=== PATIENT | female | born 1965 | race Caucasian/White ===

== ENCOUNTER 2022-07-24 14:59 | Emergency (ER) | payer BC ==
[~2022-07-24] VITALS: Ht 152.4 cm; Wt 70.0 kg
--- NOTE | 2022-07-24 15:10 | ED General ---
General Stated Complaint: RT SIDE NUMBNESS History of Present Illness Date Seen by Provider: Jul 24, 2022 Time Seen by Provider: 15:09 Initial Comments 56-year-old female presents with what she feels is tingling that starts at the bottom of her right foot and comes up to her ear. She reports its been going on and off since yesterday gets worse when she walks. She reports that she has had some similar paresthesias in upper side of her body on and off for last 3 to 4 weeks. Patient does not have any focal neurologic deficits or weakness. She has no numbness weakness tingling. She is supposed be on metformin but has not been taking it. She denies any injury, headaches, fevers chills or recent illnesses. Allergies and Home Medications Allergies Coded Allergies: No Known Drug Allergies (Unverified , 07/24/22) Patient Home Medication List Home Medication List Reviewed: Yes Review of Systems Review of Systems Constitutional: see HPI EENTM: no symptoms reported Respiratory: no symptoms reported Cardiovascular: no symptoms reported Gastrointestinal: no symptoms reported Genitourinary: no symptoms reported Musculoskeletal: no symptoms reported Skin: no symptoms reported Psychiatric/Neurological: See HPI, Tingling Physical Exam Vital Signs Vital Signs - First Documented 07/24/22 15:02 Temp 36.5 Pulse 120 Resp 18 B/P (MAP) 194/71 (112) O2 Delivery Room Air Capillary Refill : Height, Weight, BMI Height: '" Weight: lbs. oz. kg; BMI Method: General Appearance: No Apparent Distress, WD/WN Eyes: Bilateral Eye Normal Inspection, Bilateral Eye PERRL, Bilateral Eye EOMI HEENT: PERRL/EOMI, Moist Mucous Membranes Neck: Non Tender, Supple Respiratory: Lungs Clear, Normal Breath Sounds, No Accessory Muscle Use Cardiovascular: Regular Rate, Rhythm, No Edema, No Gallop Gastrointestinal: Non Tender, Soft Extremity: Normal Capillary Refill, Normal Inspection, Normal Range of Motion Neurologic/Psychiatric: Alert, Oriented x3, No Motor/Sensory Deficits, Normal Mood/Affect, gas line installer II-XII Norm as Tested; No Abnormal Gait, No EOM Palsy, No Facial Droop, No Motor Weakness, No Sensory Deficit Skin: Normal Color, Warm/Dry Progress/Results/Core Measures Suspected Sepsis SIRS Temperature: Pulse: Respiratory Rate: Laboratory Tests 07/24/22 15:06: White Blood Count 11.2H Blood Pressure / Mean: Laboratory Tests 07/24/22 15:06: Creatinine 0.87, Platelet Count 249, Total Bilirubin 0.3 Results/Orders Lab Results Laboratory Tests Test 07/24/22 15:06 07/24/22 15:09 07/24/22 15:29 Range/Units White Blood Count 11.2 H 4.3-11.0 10^3/uL Red Blood Count 5.04 3.80-5.11 10^6/uL Hemoglobin 15.3 11.5-16.0 g/dL Hematocrit 44 35-52 % Mean Corpuscular Volume 87 80-99 fL Mean Corpuscular Hemoglobin 30 25-34 pg Mean Corpuscular Hemoglobin Concent 35 32-36 g/dL Red Cell Distribution Width 12.2 10.0-14.5 % Platelet Count 249 130-400 10^3/uL Mean Platelet Volume 10.9 9.0-12.2 fL Immature Granulocyte % (Auto) 0 % Neutrophils (%) (Auto) 55 42-75 % Lymphocytes (%) (Auto) 35 12-44 % Monocytes (%) (Auto) 7 0-12 % Eosinophils (%) (Auto) 2 0-10 % Basophils (%) (Auto) 1 0-10 % Neutrophils # (Auto) 6.1 1.8-7.8 10^3/uL Lymphocytes # (Auto) 3.9 1.0-4.0 10^3/uL Monocytes # (Auto) 0.8 0.0-1.0 10^3/uL Eosinophils # (Auto) 0.3 0.0-0.3 10^3/uL Basophils # (Auto) 0.1 0.0-0.1 10^3/uL Immature Granulocyte # (Auto) 0.0 0.0-0.1 10^3/uL Sodium Level 132 L 135-145 MMOL/L Potassium Level 4.4 3.6-5.0 MMOL/L Chloride Level 96 L 98-107 MMOL/L Carbon Dioxide Level 24 21-32 MMOL/L Anion Gap 12 5-14 MMOL/L Blood Urea Nitrogen 19 H 7-18 MG/DL Creatinine 0.87 0.60-1.30 MG/DL Estimat Glomerular Filtration Rate 78 BUN/Creatinine Ratio 22 Glucose Level 548 *H 70-105 MG/DL Calcium Level 9.1 8.5-10.1 MG/DL Corrected Calcium 9.1 8.5-10.1 MG/DL Magnesium Level 1.7 1.6-2.4 MG/DL Total Bilirubin 0.3 0.1-1.0 MG/DL Aspartate Amino Transf (AST/SGOT) 11 5-34 U/L Alanine Aminotransferase (ALT/SGPT) 12 0-55 U/L Alkaline Phosphatase 131 40-136 U/L Total Protein 6.7 6.4-8.2 GM/DL Albumin 4.0 3.2-4.5 GM/DL Glucometer 459 *H 70-110 MG/DL Urine Color YELLOW Urine Clarity CLEAR Urine pH 5.5 5-9 Urine Specific [place] 1.010 L 1.016-1.022 Urine Protein NEGATIVE NEGATIVE Urine Glucose (UA) 3+ H NEGATIVE Urine Ketones NEGATIVE NEGATIVE Urine Nitrite NEGATIVE NEGATIVE Urine Bilirubin NEGATIVE NEGATIVE Urine Urobilinogen 0.2 < = 1.0 MG/DL Urine Leukocyte Esterase NEGATIVE NEGATIVE Urine RBC (Auto) NEGATIVE NEGATIVE Urine RBC NONE /HPF Urine WBC NONE /HPF Urine Squamous Epithelial Cells 5-10 /HPF Urine Crystals NONE /LPF Urine Bacteria FEW H /HPF Urine Casts NONE /LPF Urine Mucus NEGATIVE /LPF Urine Yeast FEW H /HPF Urine Culture Indicated NO My Orders Orders - CHEN,SHINE L DO Cbc With Automated Diff (07/24/22 15:10) Comprehensive Metabolic Panel (07/24/22 15:10) Magnesium (07/24/22 15:10) Ua Culture If Indicated (07/24/22 15:10) Ct Head Wo (07/24/22 15:10) Thyroid Stimulating Hormone (07/24/22 15:06) Ns Iv 1000 Ml (Sodium Chloride 0.9%) (07/24/22 16:10) Vital Signs/I&O 07/24/22 15:02 Temp 36.5 Pulse 120 Resp 18 B/P (MAP) 194/71 (112) O2 Delivery Room Air Capillary Refill : Progress Note : Progress Note Patient with high blood sugars. Patient reports at one time she had been on Trulicity and insulin along with her metformin. That she went off of it because they "lost her insurance" but now have it back. I we will start her back on metformin. I asked them to call their primary care provider first thing Tuesday morning to make an appointment for next week to get started back on insulin tony ment. At this time she does not need to be hospitalized however I did discuss with him the need to work on getting her blood sugar under control is likely the cause of her paresthesias. Patient stable and discharged home Diagnostic Imaging Diagonstic Imaging: CT Plain Films/CT/US/NM/MRI: head Comments Date of Exam:07/24/22 CT HEAD WO INDICATION: Paresthesias. Intermittent right-sided arm and leg numbness x 2 days. EXAMINATION: CT brain without contrast, 07/24/2022. FINDINGS: There is no acute hemorrhage or infarct. No mass, mass effect or midline shift. No hydrocephalus. The calvarium appears intact. The paranasal sinuses and mastoid air cells clear. IMPRESSION: No acute intracranial process. Departure Impression Primary Impression: Hyperglycemia due to diabetes mellitus Additional Impression: Paresthesia Disposition: 01 HOME, SELF-CARE Condition: Stable Departure-Patient Inst. Referrals: ESTHER BRUSH APRN (PCP) Primary Care Physician [facility] (Family) Primary Care Physician Patient Instructions: High Blood Sugar, Adult ED, Diabetes and Diet, Paresthesia (DC) Add. Discharge Instructions: Please call your primary care provider first thing Tuesday morning to arrange for an appointment time to be seen next week Scripts Metformin HCl (Metformin HCl) 1,000 Mg Tablet 1000 MG PO BID, #30 TAB Prov: SHINE CHEN DO 07/24/22 SHINE CHEN DO Jul 24, 2022 15:10
[2022-07-24 15:15] LABS: BASOPHILS # (AUTO) 0.1 10^3/uL (0.0-0.1); BASOPHILS % (AUTO) 1 % (0-10); EOSINOPHILS # (AUTO) 0.3 10^3/uL (0.0-0.3); EOSINOPHILS % (AUTO) 2 % (0-10); HEMATOCRIT 44 % (35-52); HEMOGLOBIN 15.3 g/dL (11.5-16.0); LYMPHOCYTES # (AUTO) 3.9 10^3/uL (1.0-4.0); LYMPHOCYTES % (AUTO) 35 % (12-44); MEAN CORPUSCULAR HEMOGLOBIN 30 pg (25-34); MEAN CORPUSCULAR HGB CONC 35 g/dL (32-36); MEAN CORPUSCULAR VOLUME 87 fL (80-99); MEAN PLATELET VOLUME 10.9 fL (9.0-12.2); MONOCYTES # (AUTO) 0.8 10^3/uL (0.0-1.0); MONOCYTES % (AUTO) 7 % (0-12); NEUTROPHILS # (AUTO) 6.1 10^3/uL (1.8-7.8); NEUTROPHILS % (AUTO) 55 % (42-75); PLATELET COUNT 249 10^3/uL (130-400); WHITE BLOOD COUNT 11.2 10^3/uL (4.3-11.0)
--- NOTE | 2022-07-24 15:25 | Diagnostic Imaging Report ---
INDICATION: Paresthesias. Intermittent right-sided arm and leg numbness x 2 days. EXAMINATION: CT brain without contrast, 07/24/2022. FINDINGS: There is no acute hemorrhage or infarct. No mass, mass effect or midline shift. No hydrocephalus. The calvarium appears intact. The paranasal sinuses and mastoid air cells clear. IMPRESSION: No acute intracranial process. Dictated by: Dictated on workstation # [id number]
[2022-07-24 15:34] LABS: BILIRUBIN,URINE NEGATIVE (NEGATIVE); CLARITY,URINE CLEAR; COLOR,URINE YELLOW; GLUCOSE, URINE (UA) 3+ (NEGATIVE); KETONES,URINE NEGATIVE (NEGATIVE); LEUKOCYTE ESTERASE ,URINE NEGATIVE (NEGATIVE); NITRITE,URINE NEGATIVE (NEGATIVE); PH,URINE 5.5 (5-9); PROTEIN,URINE NEGATIVE (NEGATIVE)
[2022-07-24 15:39] LABS: CREATININE SERUM 0.87 MG/DL (0.60-1.30); POTASSIUM 4.4 MMOL/L (3.6-5.0)
[2022-07-24 15:40] LABS: BILIRUBIN,TOTAL 0.3 MG/DL (0.1-1.0); CALCIUM 9.1 MG/DL (8.5-10.1); MAGNESIUM 1.7 MG/DL (1.6-2.4); TOTAL PROTEIN 6.7 GM/DL (6.4-8.2)
[2022-07-24 15:41] LABS: BACTERIA,URINE FEW /HPF; YEAST,URINE FEW /HPF
[2022-07-24] MEDS ORDERED: NS IV 1000 ML 1,000 ML IV STA (16:10)
[2022-07-24] MEDS ORDERED: METF-399 PO (16:17)
[2022-07-24 16:56] VITALS: BP 164/84
== END 2022-07-24 16:56 | disposition home or self-care (01) ==
LOC: ER FS 15:01
DX: E11.65 Type 2 diabetes mellitus with hyperglycemia (principal); R20.2 Paresthesia of skin
CPT/HCPCS: 36415; 70450; 80053; 81000; 82947; 83735; 84443; 85025

== ENCOUNTER 2022-11-29 12:08 | Emergency (ER) | payer BC ==
[~2022-11-29] VITALS: Ht 152.4 cm; Wt 71.7 kg
[~2022-11-29 12:08] MED LIST: METF-399 PO
[2022-11-29] MEDS ORDERED: TETRACAINE 0.5% OPHTH SOLN 4 ML BTL (SINGLE DOSE ONLY) OP ONE (12:45)
[2022-11-29] MEDS ORDERED: oxyCODONE/APAP 5/325MG (PERCOCET 5) TABLET PO ONE (12:45)
[2022-11-29 12:57] LABS: BASOPHILS # (AUTO) 0.1 10^3/uL (0.0-0.1); BASOPHILS % (AUTO) 1 % (0-10); EOSINOPHILS # (AUTO) 0.4 10^3/uL (0.0-0.3); EOSINOPHILS % (AUTO) 4 % (0-10); HEMATOCRIT 39 % (35-52); LYMPHOCYTES % (AUTO) 27 % (12-44); MEAN CORPUSCULAR HEMOGLOBIN 30 pg (25-34); MEAN CORPUSCULAR HGB CONC 34 g/dL (32-36); MEAN CORPUSCULAR VOLUME 91 fL (80-99); MEAN PLATELET VOLUME 9.7 fL (9.0-12.2); MONOCYTES # (AUTO) 0.5 10^3/uL (0.0-1.0); MONOCYTES % (AUTO) 5 % (0-12); NEUTROPHILS % (AUTO) 64 % (42-75); PLATELET COUNT 292 10^3/uL (130-400)
[2022-11-29 13:37] LABS: CALCIUM 8.9 MG/DL (8.5-10.1); CREATININE SERUM 0.84 MG/DL (0.60-1.30); POTASSIUM 4.5 MMOL/L (3.6-5.0)
[2022-11-29] MEDS ORDERED: NS 100 ML (IVPB) BAG IV ONE (13:45)
[2022-11-29] MEDS ORDERED: CATHETER FLUSH 10 ML SYR IV PRN (13:45)
[2022-11-29] MEDS ORDERED: HOLD METFORMIN - RECEIVED CONTRAST 20 ML VIAL IV SCH (13:45)
[2022-11-29] MEDS ORDERED: IOHEXOL 350 MG/ML 100 ML (OMNIPAQUE 350) VIAL IV ONE (13:45)
--- NOTE | 2022-11-29 14:01 | ED Headache ---
General Chief Complaint: Eye Problems Stated Complaint: LT EYE PAIN;ALTERED VISION; NAUSEA Nursing Triage Note: PT AMBULATE TO ROOM FS06 WITHOUT DIFFICULTY WITH C/O LEFT EYE PAIN, PRESSURE, BLURRED VISION, AND CONGESTION STARTING TUESDAY. PT REPORTS BEING SEEN BY URGENT CARE GIVEN ABX FOR A SINUS INFECTION. PT REPORTS TAKING IBUPROFEN FOR PAIN AT 0600 TODAY. Source: patient Exam Limitations: no limitations History of Present Illness Date Seen by Provider: Nov 29, 2022 Time Seen by Provider: 12:10 Initial Comments Patient is a 57-year-old female with left eye pain/retro-orbital pain for the past week. Patient was evaluated at [facility] 3 days ago and prescribed antibiotic for possible sinus infection. Patient states she has been taking ibuprofen for pain symptoms persist. Denies change in vision in the left eye, blurred vision, tearing, scalp or temporal tenderness. No sinus pain, tenderness, URI symptoms. No other acute symptoms or complaints Timing/Duration: 1/2 hour Severity/Quality: mild Location: other Prior Headaches/Recent Trauma: other Modifying Factors: improves with other Associated Symptoms: other Allergies and Home Medications Allergies Coded Allergies: No Known Drug Allergies (Unverified , 07/24/22) Patient Home Medication List Home Medication List Reviewed: Yes Metformin HCl (Metformin HCl) 1,000 Mg Tablet, 1,000 MG PO BID Prescribed by: SHINE CHEN on 07/24/22 1617 Review of Systems Review of Systems Constitutional: see HPI Eyes: See HPI Ears, Nose, Mouth, Throat: see HPI Past Parggxi-Vaxanb-Magkya Hx Patient Social History Tobacco Use?: Yes Smoking Status: Heavy Tobacco Smoker Smokeless Tobacco Frequency: Never a User Use of E-Cig and/or Vaping dev: No Use of E-Cig and/or Vaping Willian: Never a User Substance use?: No Alcohol Use?: No Pt feels they are or have been: No Physical Exam Vital Signs Vital Signs - First Documented 11/29/22 12:10 Temp 36.8 Pulse 62 Resp 16 B/P (MAP) 169/71 (103) O2 Delivery Room Air Capillary Refill : Less Than 3 Seconds Height, Weight, BMI Height: '" Weight: lbs. oz. kg; 30.00 BMI Method: General Appearance: no apparent distress HEENT: PERRL/EOMI, normal ENT inspection, pharynx normal, other (No eye swelling, redness, pain with range of motion, no proptosis. Intraocular pressures, OD 16) Psychiatric: alert, oriented x 3 Progress/Results/Core Measures Results/Orders Lab Results Laboratory Tests Test 11/29/22 12:45 Range/Units White Blood Count 11.0 4.3-11.0 10^3/uL Red Blood Count 4.28 3.80-5.11 10^6/uL Hemoglobin 13.0 11.5-16.0 g/dL Hematocrit 39 35-52 % Mean Corpuscular Volume 91 80-99 fL Mean Corpuscular Hemoglobin 30 25-34 pg Mean Corpuscular Hemoglobin Concent 34 32-36 g/dL Red Cell Distribution Width 12.8 10.0-14.5 % Platelet Count 292 130-400 10^3/uL Mean Platelet Volume 9.7 9.0-12.2 fL Immature Granulocyte % (Auto) 0 % Neutrophils (%) (Auto) 64 42-75 % Lymphocytes (%) (Auto) 27 12-44 % Monocytes (%) (Auto) 5 0-12 % Eosinophils (%) (Auto) 4 0-10 % Basophils (%) (Auto) 1 0-10 % Neutrophils # (Auto) 7.0 1.8-7.8 10^3/uL Lymphocytes # (Auto) 3.0 1.0-4.0 10^3/uL Monocytes # (Auto) 0.5 0.0-1.0 10^3/uL Eosinophils # (Auto) 0.4 H 0.0-0.3 10^3/uL Basophils # (Auto) 0.1 0.0-0.1 10^3/uL Immature Granulocyte # (Auto) 0.0 0.0-0.1 10^3/uL Sodium Level 139 135-145 MMOL/L Potassium Level 4.5 3.6-5.0 MMOL/L Chloride Level 106 98-107 MMOL/L Carbon Dioxide Level 25 21-32 MMOL/L Anion Gap 8 5-14 MMOL/L Blood Urea Nitrogen 19 H 7-18 MG/DL Creatinine 0.84 0.60-1.30 MG/DL Estimat Glomerular Filtration Rate 80 BUN/Creatinine Ratio 23 Glucose Level 189 H 70-105 MG/DL Calcium Level 8.9 8.5-10.1 MG/DL My Orders Orders - HAYWARD,AUDREY DO Ct Angio Head W Wo (11/29/22 12:29) Cbc With Automated Diff (11/29/22 12:32) Basic Metabolic Panel (11/29/22 12:32) Oxycodone/Apap 5/325mg Tablet (Percocet (11/29/22 12:45) Tetracaine 0.5% Ophth Leighann Sdv (Tetracai (11/29/22 12:45) Iohexol Injection (Omnipaque 350 Mg/Ml 1 (11/29/22 13:45) Received Contrast (Hold Metformin- Contr (11/29/22 13:45) Sodium Chloride Flush (Catheter Flush Sy (11/29/22 13:45) Ns (Ivpb) (Sodium Chloride 0.9% Ivpb Bag (11/29/22 13:45) Medications Given in ED Current Medications Medications Dose Ordered Sig/Osman Route Start Time Stop Time Status Last Admin Dose Admin Iohexol 100 ml ONCE ONCE IV 11/29/22 13:45 11/29/22 13:46 DC 11/29/22 13:50 80 ML Oxycodone/ Acetaminophen 1 tab ONCE ONCE PO 11/29/22 12:45 11/29/22 12:46 DC 11/29/22 12:42 1 TAB Sodium Chloride 10 ml NEEDED PRN IV 11/29/22 13:45 11/29/22 13:51 10 ML Sodium Chloride 100 ml ONCE ONCE IV 11/29/22 13:45 11/29/22 13:46 DC 11/29/22 13:51 100 ML Tetracaine HCl 1 OR 2 DROPS INTO AFFEC... ONCE ONCE OP 11/29/22 12:45 11/29/22 12:46 DC 11/29/22 12:42 0.4 ML Vital Signs/I&O 11/29/22 12:10 Temp 36.8 Pulse 62 Resp 16 B/P (MAP) 169/71 (103) O2 Delivery Room Air Blood Pressure Mean: 103 Departure Communication (Admissions) CTA head: No sinusitis or aneurysm or mass occupying lesion per radiology report. Patient with retro-orbital pain headache and nausea for several days. No change in vision but hearing noted to be present. Intraocular pressure is within the normal range. CT angio does not show mass occupying lesion or presence of aneurysm. Symptoms significantly improved while in the emergency department. Findings reviewed with patient. Recommendations are to follow-up with local hook and eye machine operator next office day. Return precautions reviewed. Patient verbalizes understanding agreement with discharge instructions prior to departure. Impression Primary Impression: Retro-orbital pain of left eye Additional Impression: Nausea and vomiting Disposition: HOME, SELF-CARE Condition: Stable Departure-Patient Inst. Decision time for Depature: 14:55 Referrals: ESTHER BRUSH APRN (PCP) Primary Care Physician [facility] (Family) Primary Care Physician Patient Instructions: Headache, Adult ED, Nausea and Vomiting, Adult ED Add. Discharge Instructions: You were evaluated in the emergency department for headache and pain behind the left eye. CT was performed and is nondiagnostic. Ocular pressure was performed and was within the normal range. Please take Excedrin Migraine OTC for pain and Compazine as needed for nausea and additional relief. Follow-up with local eye doctor in the next 1 to 2 days for reevaluation. Return to the ED if new or concerning symptoms. All discharge instructions reviewed with patient and/or family. Voiced understanding. AUDREY HAYWARD DO Nov 29, 2022 14:00
--- NOTE | 2022-11-29 14:43 | Diagnostic Imaging Report ---
PROCEDURE: CT angiography of the head with and without contrast. TECHNIQUE: Noncontrast CT of the head was obtained. Subsequently, after intravenous administration of contrast, thin section axial CT angiography of the head was performed. Source data was reformatted into multiple MIP reformats. Delayed postcontrast acquisition of the head was also acquired. Auto Exposure Controls were utilized during the CT exam to meet ALARA standards for radiation dose reduction. INDICATION: Left ocular pain The globes and orbits appear normal. There are no facial fractures. The nasal septum is deviated to the left. There is silvia bullosa of the right superior nasal turbinate. There is membrane thickening in the left sphenoid air cell. The ethmoid air cells are clear. There is minimal membrane thickening in the maxillary sinuses with a small amount of fluid retention on the left. Mastoid air cells are clear. The ventricles are normal in size, shape and position. There are no masses or hemorrhages. There are no extra-axial fluid collections. Postcontrast images of the brain do not show any abnormal areas of enhancement. There is no aneurysm, large vessel occlusion or arteriovenous malformation. IMPRESSION: Minimal sinus disease. No acute intracranial abnormality is seen. Dictated by: Dictated on workstation # [id number]
[2022-11-29] MEDS ORDERED: PROC-1 PO (14:58)
[2022-11-29 15:02] VITALS: BP 139/89
== END 2022-11-29 15:02 | disposition home or self-care (01) ==
LOC: EDUNIT# 12:08 → ER FS 12:10
DX: H57.12 Ocular pain, left eye (principal); R11.2 Nausea with vomiting, unspecified; F17.200 Nicotine dependence, unspecified, uncomplicated
CPT/HCPCS: 36415; 70496; 80048; 85025; Q9967

== ENCOUNTER → 2023-01-19 | Outpatient (CLI) | payer BC ==
[~2023-01-19] MED LIST changes: +GADOTERATE 0.5 MMOL/ML (CLARISCAN) 20 ML VIAL IV ONE; +PROC-1 PO
--- NOTE | 2023-01-19 15:00 | Diagnostic Imaging Report ---
MRI BRAIN W/WO CONTRAST Date: 01/19/2023 2:47 PM Indication: STROKE Comparison: CT OF THE HEAD ON 11/29/2022. Technique: Multiplanar multisequence MRI of the brain was performed with and without intravenous contrast using the standard protocol. Findings: No acute infarct. No acute or chronic hemorrhage. The ventricles are normal in size and configuration without hydrocephalus. Mild scattered FLAIR hyperintensities in the subcortical and periventricular deep white matter, a nonspecific finding, most commonly seen with chronic small vessel ischemic disease. No abnormal enhancement. The scalp and calvarium are normal. The pituitary and sella are normal. No Chiari malformation. The visualized upper cervical spine is normal. The visualized orbits and globes are normal. The visualized paranasal sinuses are clear. The mastoid air cells are clear. Normal flow voids within the vertebral, basilar, and internal carotid arteries indicating patency. IMPRESSION: 1. No acute infarct or hemorrhage. 2. No mass or abnormal enhancement. 3. Mild chronic small vessel ischemic disease. Dictated by: Dictated on workstation # [id number]
== END ==
LOC: RAD 13:32
PROVIDERS: ATTEND Nurse Practitioner Family
DX: I67.82 Cerebral ischemia (principal); I63.30 Cerebral infarction due to thrombosis of unspecified cerebral artery
CPT/HCPCS: 70553

== ENCOUNTER → 2023-04-07 | Outpatient (CLI) | payer BC ==
[~2023-04-07] MED LIST changes: -GADOTERATE 0.5 MMOL/ML (CLARISCAN) 20 ML VIAL IV ONE
== END ==
LOC: CARDFS 08:09
PROVIDERS: ATTEND Internal Medicine Cardiovascular Disease
DX: R07.9 Chest pain, unspecified (principal)
CPT/HCPCS: 93306

== ENCOUNTER → 2023-05-18 | Outpatient (CLI) | payer BC ==
[~2023-05-18] MED LIST changes: +CATHETER FLUSH 10 ML SYR IVP PRN
[2023-05-18 09:24] VITALS: BP 150/61
--- NOTE | 2023-05-18 14:01 | Cardiology Stress Test Report ---
Stress Test Report Date of Procedure/Referring: Date of Procedure: May 18, 2023 PCP Ирина Hurst Aprn Admitting Physician Admitting Physician: Attending Physician: Derrick Sorto MD Indications: CP Baseline Heart Rate: 67 Baseline Blood Pressure: Blood Pressure Systolic: 150 Blood Pressure Diastolic: 61 Vital Signs Date Time Temp Pulse Resp B/P (MAP) Pulse Ox O2 Delivery O2 Flow Rate FiO2 05/18/23 09:24 68 150/61 (90) 98 Baseline Vital Signs Vital Signs Date Time Temp Pulse Resp B/P (MAP) Pulse Ox O2 Delivery O2 Flow Rate FiO2 05/18/23 09:24 68 150/61 (90) 98 Baseline EKG: Baseline EKG: NSR Summary: After explaining the procedure and details to the patient, she signed the consent and was brought to the stress nuclear laboratory. Patient exercised on standard Mello protocol, EKG, heart rate and blood pressure were monitored continuously, resting and stress doses of radio tracer were injected, imaging was acquired and reviewed in the short axis, horizontal long axis and vertical long axis views Patient was able to exercise for a total of 4 minutes on Mello protocol, METs 90 Maximum heart rate 146 Maximum blood pressure 147/71 Stress EKG, Minimal nondiagnostic changes Recovery EKG, Return to baseline TID: 1.06 SSS: 20 SDS: 20 EF: 56 Conclusion: Fair exercise tolerance for 4 minutes on standard Mello protocol, 5.8 METS achieving 90% of maximal expected heart rate Appropriate heart rate and blood pressure response to exercise return to [facility] during recovery Occasional PVCs, ventricular couplets and 3 beats nonsustained ventricular tachycardia noted early in recovery Abnormal EKG changes with exercise suggestive of ischemia with horizontal [address] depression in lead II, 3, aVF. Reversible ischemia involving the mid to apical anterior wall, true apex and inferoapical segment Normal left ventricular size, ejection fraction 56% Copy Copies To 1: [facility]/ DERRICK SORTO MD May 18, 2023 14:01
== END ==
LOC: CARD 07:46
PROVIDERS: ATTEND Internal Medicine Cardiovascular Disease
DX: R07.9 Chest pain, unspecified (principal)
CPT/HCPCS: 78452; 93017; A9502

== ENCOUNTER 2023-06-01 09:47 | Day surgery (SDC) | payer BC ==
[2023-06-01] VITALS (9 sets, daily range): BP systolic 124–156; BP diastolic 60–76
[~2023-06-01] VITALS: Ht 152.4 cm; Wt 78.0 kg
[~2023-06-01 09:47] MED LIST changes: -CATHETER FLUSH 10 ML SYR IVP PRN
[2023-06-01] MEDS ORDERED: HEParin (CATH LAB) 2,000 ML IV ONE (10:11)
[2023-06-01] MEDS ORDERED: LIDOCAINE 1% INJ 20 ML VIAL ONE (10:11)
[2023-06-01] MEDS ORDERED: NS IV 1000 ML 1,000 ML ONE (10:11)
[2023-06-01] MEDS ORDERED: NS IV 1000 ML 1,000 ML IV SCH ×2 (10:15→14:00)
[2023-06-01 10:35] LABS: HEMATOCRIT 38 % (35-52); HEMOGLOBIN 12.7 g/dL (11.5-16.0); MEAN CORPUSCULAR HEMOGLOBIN 30 pg (25-34); MEAN CORPUSCULAR HGB CONC 33 g/dL (32-36); MEAN CORPUSCULAR VOLUME 91 fL (80-99); MEAN PLATELET VOLUME 10.2 fL (9.0-12.2); PLATELET COUNT 279 10^3/uL (130-400); WHITE BLOOD COUNT 7.6 10^3/uL (4.3-11.0)
[2023-06-01] MEDS ORDERED: LEVO100C4 PO (10:35)
[2023-06-01] MEDS ORDERED: ATOR40TA70 PO (10:35)
[2023-06-01] MEDS ORDERED: LOSA25TA41 PO (10:35)
[2023-06-01] MEDS ORDERED: INSU100V52 SQ (10:35)
[2023-06-01] MEDS ORDERED: METF-479 PO (10:35)
[2023-06-01] MEDS ORDERED: ASPI-999 PO (10:35)
[2023-06-01 10:47] LABS: INR 0.8 (0.8-1.4); PROTHROMBIN TIME PATIENT 11.3 SEC (12.2-14.7)
[2023-06-01 10:57] LABS: BILIRUBIN,TOTAL 0.3 MG/DL (0.1-1.0); CALCIUM 8.8 MG/DL (8.5-10.1); CREATININE SERUM 1.01 MG/DL (0.60-1.30); POTASSIUM 4.6 MMOL/L (3.6-5.0)
[2023-06-01] MEDS ORDERED: HEParin 1000 UNIT/ML (10ML VIAL) FOR BOLUS ONE (12:23)
[2023-06-01] MEDS ORDERED: NITRO DRIP 25000 MCG/D5W 250 ML IV ONE (12:23)
[2023-06-01] MEDS ORDERED: fentaNYL INJ 100 MCG/2 ML AMP ONE (12:23)
[2023-06-01] MEDS ORDERED: MIDAZOLAM 5 MG/5 ML (VERSED) VIAL ONE (12:23)
[2023-06-01] MEDS ORDERED: VERAPAMIL 5 MG/2 ML (CALAN) VIAL IV ONE (12:23)
--- NOTE | 2023-06-01 13:49 | Cardiac Cath Report ---
CARDIAC CATHETERIZATION DATE OF PROCEDURE: 06-01-23 INDICATION: Abnormal stress test HISTORY: The patient is a 57 year old female with DM II who has had intermittent chest discomfort and MPI by Dr Sorto on 05-18-23 showed considerable apical and anterior ischemia. Cath was recommended PROCEDURES PERFORMED: 1. Cor angio 2. LHC PROCEDURE DESCRIPTION: After informed consent and in the fasting state, left heart catheterization was performed through the R radial artery utilizing a 6 Uzbek system by percutaneous approach. 6F TIG for RCA angio. 5F Multipurpose for LCA angio. 5F pigtail for LHC and LV angio All catheters were exchanged over a guidewire. LV Angiography: - [place] projection. LVEF 55%. No wall motion abnormalities in the [place] projection HEMODYNAMICS: LVEDP 24 mmHg. No significant pressure gradient on pull back across the aortic valve CORONARY ANGIOGRAPHY: Coronary calcium present Left main coronary artery: Ok Left anterior descending coronary artery: Up to 90% prox LAD involving its bifurcation with the first diagonal Left circumflex coronary artery: 70% distal LCx prior to the terminal obtuse marginal branch Right coronary artery: 80-90%, long, proximal and mid vessel stenosis. RCA dominant IMPRESSION: 1. 3-vessel CAD, including proximal LAD (bifurcation). See details above 2. LVEDP 24 mmHg 3. LVEF approx 55% PLAN CABG appears to be the best treatment option. Arrangements being made Continue ASA and stating Add beta-mikael ANDREI JONAS MD FACP [facility] Jun 01, 2023 13:49
[2023-06-01] MEDS ORDERED: METO-352 PO (13:58)
[2023-06-01] MEDS ORDERED: ATOR80TA76 PO (13:58)
--- NOTE | 2023-06-01 13:59 | Discharge Inst-Cardiology ---
Discharge Inst-Cardiac Discharge Medications New Medications: Atorvastatin Calcium (Atorvastatin Calcium) 80 Mg Tablet 80 MG PO DAILY, #30 TAB 3 Refills Metoprolol Succinate (Toprol Xl) 50 Mg Tab.er.24h 50 MG PO DAILY, #30 TAB 3 Refills Continued Medications: Aspirin (Aspirin) 81 Mg Tab.chew 81 MG PO DAILY, TAB Insulin Glargine,Hum.rec.anlog (Insulin Glargine) 100 Unit/Ml Vial 10 UNIT SQ HS, VIAL Levothyroxine Sodium (Levothyroxine) 100 Mcg Capsule 100 MCG PO DAILY, CAP Losartan Potassium (Losartan Potassium) 25 Mg Tablet 25 MG PO DAILY, TAB Discontinued Medications: Atorvastatin Calcium (Atorvastatin Calcium) 40 Mg Tablet 40 MG PO DAILY, TAB Metformin HCl (Metformin HCl ER) 1,000 Mg Tab.er.24 1000 MG PO BID, TAB Patient Instructions Patient Instructions: Hold METFRORMIN until the am of 78/23. Then resume previous home dose of metformin ANDREI JONAS MD FACP [facility] Jun 01, 2023 13:59
[2023-06-01] MEDS ORDERED: ASPIRIN 81 MG CHEW (CHILDREN'S ASA) PO ONE (14:00)
[2023-06-01] MEDS ORDERED: meTOproloL SUCCINATE 50 MG (TOPROL XL) TAB PO SCH (14:00)
[2023-06-01] MEDS ORDERED: PATIENT MAY USE OWN MEDS, ALL PO SCH (14:00)
--- NOTE | 2023-06-01 14:00 | Discharge Inst-Post CATH ---
Discharge Inst-CATH/EP Post Cardiac Cath/EP D/C Inst Follow Up/Plan F/u with Dr Sorto in 3-[address] Mc's office tomorrow for appointment with cardiac surgeon ACTIVITY * Go Home directly and rest. * Limit activity of the leg (or wrist if it was used) for 7 days including aerobics, swimming, jogging, bicycling, etc. * Restrict stair-climbing for 7 days if possible, if not, climb up with your non-cath leg, then bring together on the same step. * Avoid lifting, pushing, pulling or excessive movement of the affected extremity for 7 days. * Customary sexual activity may be resumed after 2 days-use caution not to use a position that strains or causes pain to the affected extremity. * No driving for 24 hours. * NO SMOKING. * Avoid straining for bowel movements for 7 days. * Gentle walking on level ground is allowed. * Returning to work will depend on the type of procedure and the results. Your doctor will discuss this with you. CALL YOUR DOCTOR FOR ANY OF THE FOLLOWING: *If bleeding from the puncture site occurs- Apply gentle pressure to site with clean cloth and call your doctor or EMS. * If a knot or lump forms under the skin, increases in size, or causes pain. * If bruising appears to be worsening or moving further down your leg instead of disappearing. * Temperature above 101 F. CARE OF YOUR GROIN INCISION; * Bruising or purple discoloration of the skin near the puncture site is common. * You may shower only, no bathtub bathing for 5 days. Be careful to avoid slipping as your leg may feel stiff. * If a closure device was used on your femoral artery, please see the attached guide regarding care of the device and your leg. * Leave dressing on FOR 24 hours. CARE OF YOUR WRIST INCISION; * Bruising or purple discoloration of the skin near the puncture site is common. * You may shower. * DO NOT submerge wrist. * Leave dressing on FOR 24 hours. ANDREI MC MD FACP [facility] Jun 01, 2023 14:00
== END 2023-06-01 16:20 | disposition home or self-care (01) ==
LOC: CATH 09:47 → SDC 14:07 → CATH 16:20
PROVIDERS: ATTEND Internal Medicine Cardiovascular Disease
DX: I25.10 Atherosclerotic heart disease of native coronary artery without angina pectoris (principal); E11.9 Type 2 diabetes mellitus without complications; E78.2 Mixed hyperlipidemia; R94.02 Abnormal brain scan; R94.39 Abnormal result of other cardiovascular function study; Z87.891 Personal history of nicotine dependence; Z79.899 Other long term (current) drug therapy; Z79.84 Long term (current) use of oral hypoglycemic drugs
CPT/HCPCS: 80053; 80061; 85027; 85610; 85730; 87081; 93005; 93458; C1769; C1894; 36415